=== PATIENT | female | born 1955 | race Caucasian/White ===

== ENCOUNTER 2018-11-28 12:20 | Outpatient (CLI) | payer OTHER ==
--- NOTE | 2018-11-28 12:42 | RAD ---
EXAM: 2 views of the right knee HISTORY: Knee pain COMPARISON: None FINDINGS: No knee effusion is seen. The patient is status post right knee arthroplasty without. Hardw are lucency or fracture. IMPRESSION: Status post knee arthroplasty without evidence of acute osseous abnormality.
== END 2018-11-28 12:21 | disposition home or self-care (01) ==
LOC: NAV RAD 12:20
PROVIDERS: ATTEND Family Medicine
DX: Z02.71 Encounter for disability determination (principal); M15.9 Polyosteoarthritis, unspecified; Z96.651 Presence of right artificial knee joint